=== PATIENT | male | born 1990 | race Caucasian/White ===

== ENCOUNTER → 2022-04-03 08:22 | Outpatient (CLI) | payer BC, SELFPAY ==
--- NOTE | ~2022-04-03 | US_ITS ---
Limited Abdominal Sonogram: Real-time sonographic imaging of the right upper quadrant was performed. Clinical History: Abnormal LFTs Findings: The liver appears mildly echogenic, with no evidence of mass lesion or bile duct dilatatio n. Some portions of the liver are poorly seen due to bowel gas shadowing/patient body habitus. Main p ortal vein demonstrates normal direction of flow. The gallbladder is well distended, and appears norm al with no evidence of gallstone or wall thickening. The common bile duct measures 4 mm. The visuali zed pancreas, aorta, and IVC are unremarkable. Impression: Probable fatty infiltration of liver. Suboptimal exam due to patient body habitus and bowel gas shadowing. Reviewed, dictated and finalized at location . LPN LVN Impression: Probable fatty infiltration of liver. Suboptimal exam due to patient body habitus and bowel gas shadowing.
== END ==
PROVIDERS: PCP Family Medicine; Visit Provider Family Medicine
DX: R79.89 Other specified abnormal findings of blood chemistry (principal)
CPT/HCPCS: 76705